=== PATIENT | male | born 1985 | race Two or more races ===

== ENCOUNTER 2022-07-12 00:19 | Emergency (ER) | payer MEDICAID ==
[~2022-07-12] VITALS: Ht 177.8 cm; Wt 74.8 kg
--- NOTE | 2022-07-12 00:37 | NUR ---
TO ER BED 12. [id number] FROM [address] FOR OVERDOSE ON FENTANYL. 12MG OF NASAL NARCAN AND 4MG IM ZOFRAN GIVEN. BG 325. PT IS NOW ALERT, RR EVEN AND NONLABORED. CONNECTED TO POX AND HEART MONITOR. AWAITING MD GEORGE
--- NOTE | 2022-07-12 04:23 | NUR ---
PT SLEEPING COMFORTABLY V/S WNL
[2022-07-12] MEDS ORDERED: NALO4SPR BNOSTRILS (04:41)
--- NOTE | 2022-07-12 08:29 | NUR ---
CALLED NUMBER ON PT'S FILE AND SPOKE W/ PT'S MOM, MADE AWARE OF SITUATION. MOM STATES THAT SHE DOES NOT HAVE PT'S PERSONAL PHONE AT HOME.
--- NOTE | 2022-07-12 08:38 | NUR ---
PT AWAKE AND VERBALLY RESPONSIVE, NOT IN ACUTE DISTRESS. OFFERED BREAKFAST BUT PT DOES NOT WANT TO EAT AT THIS TIME. PROVIDED W/ ORANGE JUICE, VIDHI WELL.
--- NOTE | 2022-07-12 08:40 | NUR ---
IV removed. Catheter intact and site benign. Pressure and 4x4 applied to site. No bleeding noted.
--- NOTE | 2022-07-12 08:40 | NUR ---
Kristi olvera in ED - 07/12/22 at 0840 by PRISCILLA Patient discharged to home in stable condition. Written and verbal after care instructions given. Patient verbalizes understanding of instruction.
[2022-07-12 10:02] VITALS: BP 120/69
--- NOTE | 2022-07-12 10:02 | NUR ---
Patient discharged to home in stable condition, tap card provided to pt. Steady gait, ambulatory. Written and verbal after care instructions given. Patient verbalizes understanding of instruction.
== END 2022-07-12 10:03 | disposition home or self-care (01) ==
LOC: ER 00:22
DX: T40.2X1A Poisoning by other opioids, accidental (unintentional), initial encounter (principal); R40.4 Transient alteration of awareness; Z79.899 Other long term (current) drug therapy; Y92.89 Other specified places as the place of occurrence of the external cause